=== PATIENT | female | born 1980 | race Caucasian/White ===

== ENCOUNTER → 2017-08-18 | Day surgery (SDC) | payer BC, OTHER ==
[~2017-08-18] VITALS: Ht 167.6 cm; Wt 85.0 kg
[~2017-08-18] MED LIST: ACETAMINOPHEN/HYDROcodone 325 MG/5 MG TAB ONE; AMPICILLIN/SULBAC 3 GM/NS 100 ML IV SCH; CHLORHEXIDINE GLUCONATE 2 % 1 PACK (2 CLOTHS) TOPICAL PRN; DEXAMETHASONE SOD PHOS 4 MG/ML VIAL IV ONE; DEXAMETHASONE SOD PHOS 4 MG/ML VIAL OTHER ONE; EXCETAB31 PO; FLUT1INH INH; HYDR-3133 PO; LACTATED RINGER'S 1000 ML IV PRN; LIDOCAINE 1%/EPINEPHrine 1:100,000 SOLN 30 ML VIAL ONE; LIDOCAINE HCL 1% PF 5 ML SYRINGE OTHER ONE; METOPROLOL TARTRATE 25 MG TAB PO PRN; MIDAZOLAM HCL 2 MG/2 ML VIAL ONE; MORPHINE SULFATE 4 MG/ML INJ ONE; ONDANSETRON HCL 4 MG/2 ML VIAL IV PUSH ONE; OXYMETAZOLINE HCL 0.05% 15 ML NASAL SPRAY ONE; POVIDONE IODINE 5% (ANTISEPSIS KIT) 4 APPLICATIONS EACH NARE PRN; PROPOFOL 200 MG/20 ML AMP IV ONE; ROCURONIUM INJ 50 MG/5 ML SYRINGE IV PUSH ONE; SODIUM CHLORID 0.9% 500 ML IV PRN; Z.0.NO CURRENT MEDS
[2017-08-18 10:35] VITALS: PULSE 84
[2017-08-18 12:30] VITALS: BP 130/89; PULSE 71; RESP 16; TEMP 98; O2SAT 100
--- NOTE | 2017-08-29 18:38 | MP ---
cc: Mendez Currie MD, James M MD DATE OF OPERATION: 08/18/2017 SURGEON: Dr. Mendez Currie. PREOPERATIVE DIAGNOSES: 1. Nasal airway obstruction. 2. Nasal septal deviation. 3. Hypertrophied inferior turbinates. POSTOPERATIVE DIAGNOSES: 1. Nasal airway obstruction. 2. Nasal septal deviation. 3. Hypertrophied inferior turbinates. OPERATION PERFORMED: 1. Open repair, nasal septal fracture. 2. Bilateral submucosal resection of inferior turbinates. INDICATIONS: Documented in the history and physical. DETAILS OF PROCEDURE: The patient was taken to OR #2 and placed in the supine position. Following induction of general anesthesia and intubation, the nose was packed bilaterally with cotton pledgets, saturated in 0.05% oxymetazoline, and the septal mucosa and inferior turbinates were injected with a total of 10 mL of 1% Xylocaine with epinephrine 1:100,000. She was then prepped and draped for surgery. Packing was removed and a hemitransfixion incision was made in the left nasal vestibule and, through this incision, the septal mucosa was elevated bilaterally as far as the junction of the bony cartilaginous septum. This exposed the quadrangular cartilage, which showed evidence of old long-healed septal fracture with numerous comminuted fragments extending into the nasal airways bilaterally. A cumulative area of 2 x 2.5 cm of the cartilage was removed, preserving 1.5 cm dorsal and caudal cartilaginous strut. The caudal cartilaginous strut was then completely mobilized from its location at the left side of the maxillary crest and then placed in the midline on the superior aspect of the maxillary crest and the anterior nasal spine. When this was completed, the mucosa of the bony septum was elevated back as far as the rostrum of the sphenoid and the bony septum and the maxillary crest were removed using John-Megan forceps and a 6 mm Dipak chisel. The incision was then closed with a running suture of 4-0 chromic and the mucosal layers of septum were approximated to each other with a quilting stitch of 4-0 plain gut. The inferior turbinates were addressed next. They were fractured out medially and stab incisions made along their inferior surfaces. Through these incisions, the submucosal soft tissue was reduced using a curette and preserving the conchal bone. The incisions were then cauterized using the suction Bovie at 35 cl[address] and the remnants of the inferior turbinates were then relateralized to the lateral nasal wall. The nose was then packed with 5.5 cm Rapid Rhino packs. Each was inflated with 5 mL of air and the procedure was terminated. The patient was reversed from anesthesia and taken to recovery in good condition. There were no complications. The blood loss was 80 mL. MD RADHA [email or web address]//[email or web address] , 03:23 PM , 06:20 PM
== END | disposition home or self-care (01) ==
LOC: PHSDC 06:16
PROVIDERS: ATTEND Otolaryngology
DX: J34.2 Deviated nasal septum (principal); J34.3 Hypertrophy of nasal turbinates
CPT/HCPCS: 00160; 21336; 30140; J0295; J1100; J2250; J2270; J2405; J3010; J7120